=== PATIENT | female | born 1970 | race Caucasian/White ===

== ENCOUNTER 2016-04-19 16:16 | Emergency (ER) | payer OTHER | END 2016-04-19 16:20 | disposition home or self-care (01) | LOC: CFTX 16:16 | DX: G89.29 Other chronic pain (principal); M54.5 Low back pain; J44.1 Chronic obstructive pulmonary disease with (acute) exacerbation; F17.210 Nicotine dependence, cigarettes, uncomplicated; Z98.890 Other specified postprocedural states; Z88.1 Allergy status to other antibiotic agents; Z88.8 Allergy status to other drugs, medicaments and biological substances | CPT/HCPCS: 82947; 94640; 99283 ==

== ENCOUNTER 2016-04-26 06:28 | Emergency (ER) | payer OTHER ==
--- NOTE | ~2016-04-26 | CR63 ---
[facility] A Service of [facility] & [facility] RADIOLOGY TEXT RESULTS PATIENT: PRICILA HAMMONDS LOCATION: [facility] : 74 UNIT #: [id number] AGE: [address]: Argenis Parish MD SEX: F ORDER DR: [id number] [facility] [address] [place], [place] [address] [id number] E MR#: [id number] Acc #: [id number] NAME: PRICILA HAMMONDS : 1970 SEX: F STUDY DATE/TIME: 04/26/2016 7:17 UNIT: [facility] ROOM: STUDY DESCRIPTION: CR Chest 2 View Attending Physician: Argenis Parish M.D. Ordering Physician: Argenis Parish M.D. Primary Care Physician: Levon Reis M.D. MEDICAL IMAGING REPORT This report is preliminary unless electronic signature is present EXAM PA and lateral chest. INDICATIONS Cough and left flank pain starting today. FINDINGS PA and lateral views of the chest were obtained. The heart size and vascularity are normal. The lungs are clear. The bones show mild degenerative changes. IMPRESSION No active disease. Dictated by... Ezra Wang M.D. THIS IS AN ELECTRONICALLY VERIFIED REPORT Ezra Wang M.D. at 04/26/2016 2:17 PM FEL/cleo TD: 04/26/2016 09:32 JOB #: [id number] MEDICAL IMAGING REPORT COPY
[2016-04-26 06:38] LABS: URINE SOURCE CLEAN CATCH
[2016-04-26 06:43] LABS: URINE APPEARANCE CLEAR; URINE BILIRUBIN NEG (NEG); URINE BLOOD 1+ (NEG); URINE COLOR YELLOW; URINE GLUCOSE NEG (NEG); URINE KETONE NEG (NEG); URINE LEUKOCYTE ESTERASE NEG (NEG); URINE NITRATE NEG (NEG); URINE PROTEIN NEG (NEG); URINE SPECIFIC GRAVITY 1.024 (1.003-1.035); URINE UROBILINOGEN 0.2 MG/DL (NEG)
[2016-04-26 06:45] LABS: URINE BACTERIA AUWI NEG (NEGATIVE); URINE SQUAMOUS EPITHELIAL CELL OCC /[HPF]; UWBCS1 AUWI 0-2 (0-5)
[2016-04-26 06:46] LABS: CULTURE INDICATED? NO
== END 2016-04-26 08:35 | disposition home or self-care (01) ==
LOC: CED 06:28
PROVIDERS: Student in an Organized Health Care Education/Training Program
DX: R10.9 Unspecified abdominal pain (principal); Z88.1 Allergy status to other antibiotic agents; Z88.8 Allergy status to other drugs, medicaments and biological substances; E11.9 Type 2 diabetes mellitus without complications; J45.909 Unspecified asthma, uncomplicated; Z90.710 Acquired absence of both cervix and uterus; F20.9 Schizophrenia, unspecified; M54.9 Dorsalgia, unspecified; G89.29 Other chronic pain
CPT/HCPCS: 71020; 81003; 84703; 99284

== ENCOUNTER 2016-05-01 07:35 | Emergency (ER) | payer OTHER | END 2016-05-01 08:20 | disposition home or self-care (01) | LOC: CED 07:35 | DX: M54.42 Lumbago with sciatica, left side (principal); R07.89 Other chest pain; R05 Cough; E11.9 Type 2 diabetes mellitus without complications; I10 Essential (primary) hypertension; F17.210 Nicotine dependence, cigarettes, uncomplicated; Z88.1 Allergy status to other antibiotic agents; Z88.8 Allergy status to other drugs, medicaments and biological substances | CPT/HCPCS: 99283 ==

== ENCOUNTER 2016-05-11 13:36 | Emergency (ER) | payer OTHER | END 2016-05-11 14:55 | disposition home or self-care (01) | LOC: CFTX 13:36 | DX: S39.012A Strain of muscle, fascia and tendon of lower back, initial encounter (principal); S29.012A Strain of muscle and tendon of back wall of thorax, initial encounter; E10.9 Type 1 diabetes mellitus without complications; I10 Essential (primary) hypertension; J44.9 Chronic obstructive pulmonary disease, unspecified; J45.909 Unspecified asthma, uncomplicated; F20.9 Schizophrenia, unspecified; F17.210 Nicotine dependence, cigarettes, uncomplicated; Z88.1 Allergy status to other antibiotic agents; X58.XXXA Exposure to other specified factors, initial encounter | CPT/HCPCS: 94640; 96372; 99283; J1885 ==

== ENCOUNTER 2016-06-03 19:40 | Emergency (ER) | payer OTHER | END 2016-06-03 19:54 | disposition home or self-care (01) | LOC: CFTX 19:40 | DX: M54.42 Lumbago with sciatica, left side (principal); M54.41 Lumbago with sciatica, right side; K08.89 Other specified disorders of teeth and supporting structures; E11.9 Type 2 diabetes mellitus without complications; I10 Essential (primary) hypertension; F17.210 Nicotine dependence, cigarettes, uncomplicated; Z88.1 Allergy status to other antibiotic agents; Z88.8 Allergy status to other drugs, medicaments and biological substances | CPT/HCPCS: 96372; 99283; J1885 ==

== ENCOUNTER 2016-06-11 14:40 | Emergency (ER) | payer OTHER | END 2016-06-11 15:20 | disposition home or self-care (01) | LOC: CFTX 14:40 | DX: M54.42 Lumbago with sciatica, left side (principal); M54.41 Lumbago with sciatica, right side; I10 Essential (primary) hypertension; F17.210 Nicotine dependence, cigarettes, uncomplicated; Z88.1 Allergy status to other antibiotic agents; Z88.8 Allergy status to other drugs, medicaments and biological substances | CPT/HCPCS: 96372; 99283; J1885; J2360 ==

== ENCOUNTER 2016-06-15 08:45 | Emergency (ER) | payer OTHER ==
--- NOTE | ~2016-06-15 | CR21 ---
[facility] A Service of [facility] & [facility] RADIOLOGY TEXT RESULTS PATIENT: PRICILA HAMMONDS LOCATION: [facility] : 74 UNIT #: [id number] AGE: [address]: May Rodriguez APRN SEX: F ORDER DR: [id number] [facility] [address] [place], [place] [address] [id number] E MR#: [id number] Acc #: [id number] NAME: PRICILA HAMMONDS : 1970 SEX: F STUDY DATE/TIME: 06/15/2016 8:48 UNIT: [facility] ROOM: STUDY DESCRIPTION: CR Ankle Min 3 Views Rt Attending Physician: May Rodriguez A.P.R.N. Ordering Physician: Ed Doctor [id number] [facility] Primary Care Physician: Levon Reis M.D. MEDICAL IMAGING REPORT This report is preliminary unless electronic signature is present EXAM Right ankle, 06/15/2016 INDICATION No known injury. 45-year-old female with ankle pain. Symptoms 2 days. COMPARISON No comparisons FINDINGS Postoperative changes related to fracture repair of the distal tibia are present. There is a medullary bhavik partially included within the field of view. There is a healed fracture deformity of the mid to distal shaft tibia. There are degenerative changes in the right ankle. No acute fracture. There is moderate tibiotalar degenerative change. Soft tissues unremarkable. IMPRESSION Degenerative change in the right ankle but no acute fracture. Chronic fracture deformity and postop changes in the tibia as described. Dictated by... Saman Sexton M.D. THIS IS AN ELECTRONICALLY VERIFIED REPORT Saman Sexton M.D. at 06/15/2016 5:19 PM KOBI/kay TD: 06/15/2016 10:21 JOB #: [id number] MEDICAL IMAGING REPORT Page 1 of 1 COPY
== END 2016-06-15 10:00 | disposition home or self-care (01) ==
LOC: CED 08:45
DX: M25.571 Pain in right ankle and joints of right foot (principal); E11.9 Type 2 diabetes mellitus without complications; I10 Essential (primary) hypertension; J45.909 Unspecified asthma, uncomplicated; F20.9 Schizophrenia, unspecified; F17.210 Nicotine dependence, cigarettes, uncomplicated
CPT/HCPCS: 29405; 73610; 99283

== ENCOUNTER 2016-08-06 09:54 | Emergency (ER) | payer OTHER | END 2016-08-06 11:30 | disposition home or self-care (01) | LOC: CED 09:54 → CFTX 09:54 | DX: M54.41 Lumbago with sciatica, right side (principal); M54.42 Lumbago with sciatica, left side; G89.29 Other chronic pain; E11.9 Type 2 diabetes mellitus without complications; E78.5 Hyperlipidemia, unspecified; I10 Essential (primary) hypertension; F17.210 Nicotine dependence, cigarettes, uncomplicated; F20.9 Schizophrenia, unspecified; Z98.890 Other specified postprocedural states; Z88.8 Allergy status to other drugs, medicaments and biological substances; Z79.899 Other long term (current) drug therapy; Z79.84 Long term (current) use of oral hypoglycemic drugs; Z79.82 Long term (current) use of aspirin | CPT/HCPCS: 96372; 99283; J1885 ==

== ENCOUNTER 2016-09-20 09:07 | Emergency (ER) | payer OTHER ==
[~2016-09-20] VITALS: Ht 167.6 cm; Wt 118.8 kg
== END 2016-09-20 09:56 | disposition home or self-care (01) ==
LOC: CED 09:07
DX: K08.89 Other specified disorders of teeth and supporting structures (principal); I10 Essential (primary) hypertension; E11.9 Type 2 diabetes mellitus without complications; F17.210 Nicotine dependence, cigarettes, uncomplicated; Z88.1 Allergy status to other antibiotic agents; Z88.8 Allergy status to other drugs, medicaments and biological substances
CPT/HCPCS: 99283

== ENCOUNTER 2016-09-21 22:58 | Emergency (ER) | payer OTHER ==
[~2016-09-21] VITALS: Ht 167.6 cm; Wt 132.4 kg
== END 2016-09-21 23:57 | disposition home or self-care (01) ==
LOC: CED 22:58
DX: K08.89 Other specified disorders of teeth and supporting structures (principal); I10 Essential (primary) hypertension; F17.200 Nicotine dependence, unspecified, uncomplicated
CPT/HCPCS: 96372; 99282; J1885

== ENCOUNTER 2016-10-25 12:17 | Emergency (ER) | payer OTHER ==
[~2016-10-25] VITALS: Ht 167.6 cm; Wt 122.9 kg
== END 2016-10-25 14:16 | disposition home or self-care (01) ==
LOC: CFTX 12:17 → CED 12:17 → CFTX 13:35
DX: G89.29 Other chronic pain (principal); M54.41 Lumbago with sciatica, right side; M54.42 Lumbago with sciatica, left side; I10 Essential (primary) hypertension; F17.210 Nicotine dependence, cigarettes, uncomplicated; Z88.1 Allergy status to other antibiotic agents; Z88.8 Allergy status to other drugs, medicaments and biological substances
CPT/HCPCS: 96372; 99283; J1885

== ENCOUNTER 2016-11-01 06:31 | Emergency (ER) | payer OTHER ==
[~2016-11-01] VITALS: Ht 167.6 cm; Wt 122.9 kg
== END 2016-11-01 07:50 | disposition home or self-care (01) ==
LOC: CED 06:31
DX: M54.5 Low back pain (principal); J06.9 Acute upper respiratory infection, unspecified; E11.9 Type 2 diabetes mellitus without complications; I10 Essential (primary) hypertension; F17.200 Nicotine dependence, unspecified, uncomplicated; Z88.8 Allergy status to other drugs, medicaments and biological substances
CPT/HCPCS: 99283

== ENCOUNTER 2016-11-05 04:50 | Emergency (ER) | payer OTHER ==
[~2016-11-05] VITALS: Ht 167.6 cm; Wt 122.9 kg
--- NOTE | ~2016-11-05 | CR63 ---
[facility] A Service of [facility] & [facility] RADIOLOGY TEXT RESULTS PATIENT: PRICILA HAMMONDS LOCATION: [facility] : 74 UNIT #: [id number] AGE: [address]: Tonio Garcia DO SEX: F ORDER DR: [id number] [facility] [address] [place], [place] [address] [id number] E MR#: [id number] Acc #: [id number] NAME: PRICILA HAMMONDS : 1970 SEX: F STUDY DATE/TIME: 11/05/2016 7:20 UNIT: [facility] ROOM: STUDY DESCRIPTION: CR Chest 2 View Attending Physician: Tonio Garcia D.O. Ordering Physician: Zacarias Weems Aprn Primary Care Physician: Levon Reis M.D. MEDICAL IMAGING REPORT This report is preliminary unless electronic signature is present EXAM Chest x-ray 11/05 INDICATIONS Cough, congestion and shortness of air for 3 days. History of smoking. FINDINGS Two views of the chest are compared with 04/26/2016. Cardiac and mediastinal contours are normal. Vascularity is normal. Lungs are clear. No pneumothorax identified. There is degenerative disease in the spine. IMPRESSION No active disease and no interval change. Dictated by... Zane Khan Jr., M.D. THIS IS AN ELECTRONICALLY VERIFIED REPORT Zane Khan Jr., M.D. at 11/05/2016 4:38 PM KRISHAN/max TD: 11/05/2016 13:55 JOB #: [id number] MEDICAL IMAGING REPORT Page 1 of 1 COPY
== END 2016-11-05 08:21 | disposition home or self-care (01) ==
LOC: CED 04:50
DX: J06.9 Acute upper respiratory infection, unspecified (principal); J45.909 Unspecified asthma, uncomplicated; I10 Essential (primary) hypertension; E11.9 Type 2 diabetes mellitus without complications; F17.210 Nicotine dependence, cigarettes, uncomplicated; Z88.0 Allergy status to penicillin; Z88.8 Allergy status to other drugs, medicaments and biological substances
CPT/HCPCS: 71020; 94640; 99284